=== PATIENT | female | born 1980 | race African-American/Black ===

== ENCOUNTER → 2016-08-01 | Outpatient (CLI) | payer BC ==
[~2016-08-01] MED LIST: ACYCLOVIR 400400 M1 PO; BIRTH CONTROL; PERCOCET 5-3251 EACH PO
== END ==
LOC: RAD 14:39
DX: S90.31XA Contusion of right foot, initial encounter (principal); M25.571 Pain in right ankle and joints of right foot; X58.XXXA Exposure to other specified factors, initial encounter; Y93.89 Activity, other specified; Y92.89 Other specified places as the place of occurrence of the external cause; Y99.8 Other external cause status

== ENCOUNTER → 2016-10-01 | Outpatient (CLI) | payer BC | LOC: RAD 16:40 | DX: M25.561 Pain in right knee (principal) ==